=== PATIENT | male | born 1950 | race Caucasian/White ===

== ENCOUNTER 2022-01-18 13:12 | Inpatient (IN) ==
[2022-01-18 14:32] LABS: Basophils # 0.2 K/mcL (0.0-0.2); Basophils % 1.7 %; Eosinophils # 0.2 K/mcL (0.0-0.6); Hematocrit 44.5 % (37.5-50.1); Hemoglobin 14.7 g/dL (12.9-16.9); Immature Granulocytes % 2.3 % (0-4); Lymphocytes # 1.4 K/mcL (0.6-4.6); Lymphocytes % 15.5 %; Mean Corpuscular Hemoglobin 31.8 pg (28.0-33.3); Mean Corpuscular Volume 96.3 fL (83.0-100.0); Mean Platelet Volume 9.8 fL (9.4-12.4); Monocytes # 0.6 K/mcL (0.0-1.3); Monocytes % 6.1 %; Neutrophils # 6.6 K/mcL (1.6-8.9); Platelet Count 173 K/mcL (140-400); Red Blood Count 4.62 M/mcL (4.19-5.50); Red Cell Distribution Width 13.2 % (11.5-14.5); Segmented Neutrophils % 72.4 %; White Blood Count 9.1 K/mcL (4.3-11.1)
[2022-01-18 14:53] LABS: BUN/Creatinine Ratio 19 (6-26); Blood Urea Nitrogen 17 mg/dL (8-23); Calcium 9.6 mg/dL (8.6-10.3); Carbon Dioxide 25 mEq/L (23-29); Chloride 103 mEq/L (98-107); Glucose 93 mg/dL (70-105); Osmolality,Calculated 281 (280-300); Potassium 4.1 mEq/L (3.5-5.1); Sodium 135 mEq/L (136-145)
[2022-01-18 14:58] LABS: Troponin I 0.09 ng/mL (< 0.04)
[2022-01-18] MEDS ORDERED: Aspirin 325 MG TABLET PO ONE (15:27)
[2022-01-18] MEDS ORDERED: Iopamidol - 370 500 ML MLS IVP ONE (15:29)
[2022-01-18 16:00] LABS: Adenovirus Not Detected (Not Detect); Bordetella Pertussis Not Detected (Not Detect); Chlamydophila pneumoniae Not Detected (Not Detect); Coronavirus 229E Not Detected (Not Detect); Coronavirus HKU1 Not Detected (Not Detect); Coronavirus NL63 Not Detected (Not Detect); Coronavirus OC43 Not Detected (Not Detect); Human Metapneumovirus Not Detected (Not Detect); Human Rhinovirus/Enterovirus Not Detected (Not Detect); Influenza A Subtype 2009 H1 Not Detected (Not Detect); Influenza B Not Detected (Not Detect); Mycoplasma pneumoniae Not Detected (Not Detect); Parainfluenza Virus 1 Not Detected (Not Detect); Parainfluenza Virus 2 Not Detected (Not Detect); Parainfluenza Virus 3 Not Detected (Not Detect); Parainfluenza Virus 4 Not Detected (Not Detect); Respiratory Syncytial Virus Not Detected (Not Detect); SARS-CoV-2 Not Detected (Not Detect)
[2022-01-18] MEDS ORDERED: cefTRIAXone 1,000 MG in 0.9 % Sodium Chloride Mini Bag 100 ML IVPB ONE (16:58)
[2022-01-18] MEDS ORDERED: Doxycycline 100 MG in 0.9 % Sodium Chloride Mini Bag 100 ML IVPB ONE (16:58)
[2022-01-18] MEDS ORDERED: Ipratropium/Albuterol Neb 3 ML IH ONE (17:00)
[2022-01-18] MEDS ORDERED: Ondansetron 4 MG/2 ML VIAL IVP PRN (17:28)
[2022-01-18] MEDS ORDERED: Melatonin 3 MG TABLET PO PRN (17:28)
[2022-01-18] MEDS ORDERED: Morphine Sulfate 2 MG/ML SYRINGE IVP PRN (17:28)
[2022-01-18] MEDS ORDERED: Naloxone 0.4 MG/ML INJ IVP PRN (17:28)
[2022-01-18] MEDS ORDERED: *HR* Heparin 5,000 UNIT/ML VIAL IVP PRN (17:33)
[2022-01-18] MEDS ORDERED: *HR* Heparin 5,000 UNIT/ML VIAL IVP ONE (17:33)
[2022-01-18 19:26] LABS: Hematocrit 45.5 % (37.5-50.1); Mean Corpuscular Hemoglobin 31.6 pg (28.0-33.3); Mean Corpuscular Volume 95.8 fL (83.0-100.0); Mean Platelet Volume 9.5 fL (9.4-12.4); Platelet Count 142 K/mcL (140-400); Red Blood Count 4.75 M/mcL (4.19-5.50); Red Cell Distribution Width 13.4 % (11.5-14.5); White Blood Count 10.1 K/mcL (4.3-11.1)
[2022-01-18] MEDS: 0.9 % Sodium Chloride 1,000 ML IVC SCH (19:31)
[2022-01-18] MEDS: Heparin 25,000UNIT/250ML 1/2NS 25,000 UNIT/250 ML IV.SOLN IVC SCH (19:32)
[2022-01-18 19:35] LABS: INR 1.1; Prothrombin Time 11.9 Seconds (9.4-12.1)
[2022-01-18 19:37] LABS: Heparin anti-factor XA UFH < 0.04 IU/mL (0.30-0.70)
[2022-01-18] MEDS ORDERED: SIMVASTATIN 80 MG PO SCH (21:45)
[2022-01-18] MEDS: Gabapentin 300 MG CAPSULE PO SCH (22:51)
[2022-01-18] MEDS: *HR* OxyCODONE/APAP 5/325 TABLET PO PRN (22:51)
[2022-01-18] MEDS: Mirtazapine 15 MG TABLET PO SCH (22:52)
[2022-01-19 04:03] LABS: Basophils # 0.1 K/mcL (0.0-0.2); Basophils % 1.2 %; Eosinophils # 0.2 K/mcL (0.0-0.6); Eosinophils % 1.8 %; Hematocrit 42.8 % (37.5-50.1); Hemoglobin 14.2 g/dL (12.9-16.9); Lymphocytes % 11.4 %; Mean Corpuscular HGB Conc 33.2 g/dL (31.6-35.5); Mean Corpuscular Hemoglobin 31.4 pg (28.0-33.3); Mean Corpuscular Volume 94.7 fL (83.0-100.0); Mean Platelet Volume 9.6 fL (9.4-12.4); Monocytes # 0.5 K/mcL (0.0-1.3); Monocytes % 6.4 %; Neutrophils # 6.4 K/mcL (1.6-8.9); Platelet Count 144 K/mcL (140-400); Red Blood Count 4.52 M/mcL (4.19-5.50); Red Cell Distribution Width 13.2 % (11.5-14.5); Segmented Neutrophils % 77.2 %; White Blood Count 8.3 K/mcL (4.3-11.1)
[2022-01-19 04:11] LABS: Prothrombin Time 11.5 Seconds (9.4-12.1)
[2022-01-19 04:24] LABS: Alanine Aminotransferase 11 Units/L (7-52); Albumin 3.8 g/dL (3.5-5.7); Albumin/Globulin Ratio 1.4 (1.1-2.2); Alkaline Phosphatase 72 Units/L (34-104); Aspartate Amino Transferase 15 Units/L (13-39); BUN/Creatinine Ratio 20 (6-26); Bilirubin,Total 0.3 mg/dL (0.3-1.0); Blood Urea Nitrogen 17 mg/dL (8-23); Calcium 9.2 mg/dL (8.6-10.3); Carbon Dioxide 23 mEq/L (23-29); Chloride 106 mEq/L (98-107); Globulin 2.8 g/dL (2.4-3.5); Glucose 111 mg/dL (70-105); Osmolality,Calculated 286 (280-300); Sodium 137 mEq/L (136-145); Total Protein 6.6 g/dL (6.4-8.9)
[2022-01-19] MEDS: *HR* Heparin 5,000 UNIT/ML VIAL IVP PRN ×2 (04:43→17:23)
[2022-01-19] MEDS: *HR* OxyCODONE/APAP 5/325 TABLET PO PRN ×2 (05:59→20:51)
[2022-01-19] MEDS: Gabapentin 300 MG CAPSULE PO SCH ×2 (08:17→20:51)
[2022-01-19] MEDS: Aspirin 81 MG TAB.CHEW PO SCH (08:17)
[2022-01-19] MEDS: 0.9 % Sodium Chloride 1,000 ML IVC SCH (08:18)
[2022-01-19] MEDS: lisinopriL 10 MG TABLET PO SCH ×2 (08:20→09:43)
[2022-01-19] MEDS ORDERED: *HR* LORazepam 1 MG TABLET PO PRN ×2 (11:48)
[2022-01-19] MEDS ORDERED: *HR* LORazepam 2 MG/ML VIAL IVP PRN ×3 (11:48)
[2022-01-19] MEDS: Thiamine (B-1) 100 MG, Folic Acid 1 MG, MVI, adult with vitamin K 10 ML in 0.9 % Sodi... IVPB SCH (17:21)
[2022-01-19] MEDS: Heparin 25,000UNIT/250ML 1/2NS 25,000 UNIT/250 ML IV.SOLN IVC SCH (17:22)
[2022-01-19] MEDS: Mirtazapine 15 MG TABLET PO SCH (20:51)
[2022-01-19] MEDS: Ipratropium/Albuterol Neb 3 ML IH PRN (23:09)
[2022-01-20] MEDS: Nitroglycerin 0.4 MG TAB.SUBL SL PRN ×4 (01:28→09:18)
[2022-01-20 01:59] LABS: Chol/HDL Ratio 3.5 (0-4.9)
[2022-01-20] MEDS: lisinopriL 10 MG TABLET PO SCH (09:18)
[2022-01-20] MEDS: Gabapentin 300 MG CAPSULE PO SCH ×2 (09:18→21:18)
[2022-01-20] MEDS: Folic Acid 1 MG TABLET PO SCH (09:19)
[2022-01-20] MEDS: Aspirin 81 MG TAB.CHEW PO SCH (09:19)
[2022-01-20] MEDS: Nicotine 21 MG PATCH.TD24 TD SCH (09:19)
[2022-01-20] MEDS: *HR* OxyCODONE/APAP 5/325 TABLET PO PRN ×3 (09:23→22:38)
[2022-01-20] MEDS: Heparin 25,000UNIT/250ML 1/2NS 25,000 UNIT/250 ML IV.SOLN IVC SCH ×2 (09:25→23:33)
[2022-01-20] MEDS: Thiamine (B-1) 100 MG, Folic Acid 1 MG, MVI, adult with vitamin K 10 ML in 0.9 % Sodi... IVPB SCH (16:01)
[2022-01-20] MEDS: Mirtazapine 15 MG TABLET PO SCH (21:20)
[2022-01-20] MEDS: Ipratropium/Albuterol Neb 3 ML IH PRN (23:27)
[2022-01-21] MEDS: *HR* OxyCODONE/APAP 5/325 TABLET PO PRN ×3 (04:38→21:00)
[2022-01-21] MEDS: Gabapentin 300 MG CAPSULE PO SCH ×2 (08:17→20:57)
[2022-01-21] MEDS: Aspirin 81 MG TAB.CHEW PO SCH (08:17)
[2022-01-21] MEDS: lisinopriL 10 MG TABLET PO SCH (08:17)
[2022-01-21] MEDS: Nicotine 21 MG PATCH.TD24 TD SCH (08:18)
[2022-01-21] MEDS: Folic Acid 1 MG TABLET PO SCH (08:18)
[2022-01-21 08:51] LABS: Calcium 9.3 mg/dL (8.6-10.3); Potassium 4.3 mEq/L (3.5-5.1)
[2022-01-21] MEDS ORDERED: *HR* Heparin 10,000 UNIT/10 ML VIAL ONE (10:40)
[2022-01-21] MEDS ORDERED: Heparin 1,000 UNITS/500 mL 500 ML ONE (10:40)
[2022-01-21] MEDS ORDERED: 0.9 % Sodium Chloride 1,000 ML ONE ×2 (10:40→10:47)
[2022-01-21] MEDS ORDERED: Nitroglycerin 1,000 MCG/5 ML VIAL IV ONE (10:40)
[2022-01-21] MEDS ORDERED: Iopamidol - 370 200 ML INFUS..BTL ONE (10:40)
[2022-01-21] MEDS ORDERED: *HR* FentaNYL (PF) 100 MCG/2 ML VIAL ONE (10:43)
[2022-01-21] MEDS ORDERED: *HR* Midazolam HCl 2 MG/2 ML VIAL ONE (10:43)
[2022-01-21] MEDS ORDERED: 0.9 % Sodium Chloride 1,000 ML IVC SCH (11:45)
[2022-01-21] MEDS ORDERED: Furosemide 20 MG/2 ML VIAL IVP ONE (13:50)
[2022-01-21] MEDS: Ipratropium/Albuterol Neb 3 ML IH PRN (14:25)
[2022-01-21] MEDS: Thiamine (B-1) 100 MG, Folic Acid 1 MG, MVI, adult with vitamin K 10 ML in 0.9 % Sodi... IVPB SCH (18:03)
[2022-01-21 20:11] VITALS: BP 128/74; PULSE 64; TEMP 97.4; O2SAT 97
[2022-01-21] MEDS: Mirtazapine 15 MG TABLET PO SCH (20:57)
== END 2022-01-21 23:59 | disposition other institution (70) | DRG 247 ==
LOC: EMEROOARM 13:12 → 3BNU 13:12
PROVIDERS: ADMIT Internal Medicine; ATTEND Internal Medicine